=== PATIENT | female | born 1960 | race Caucasian/White ===

== ENCOUNTER 2020-07-28 04:44 | Emergency (ER) | payer SELFPAY ==
[2020-07-28] MEDS ORDERED: Pantoprazole 40 MG VIAL ONE (05:15)
[2020-07-28] MEDS ORDERED: Ondansetron PF 4 MG/2 ML Vial ONE (05:15)
[2020-07-28] MEDS ORDERED: Sodium Chloride 0.9% 1,000 ML ONE (05:15)
[2020-07-28 05:16] LABS: Bilirubin Large (Negative); Blood, Urine Trace (Negative); Clarity Slightly Cloudy (Clear); Glucose, Urine (Dipstick) Negative (Negative); Ketone, Urine Negative (Negative); Leukocyte Small (Negative); Nitrite Positive (Negative); Protein, Urine (Dipstick) 100 mg/dL (Neg-Trace); Specific Gravity, Urine 1.025 (1.005-1.030)
[2020-07-28 05:33] LABS: Bacteria/HPF 3+ HPF (None Seen)
[2020-07-28 05:34] LABS: Mucous/LPF 2+ LPF (<2+)
[2020-07-28 05:35] LABS: Other Microscopic Description FEW CLUE CELLS
[2020-07-28] MEDS ORDERED: Ketorolac Tromethamine 30 MG/ML VIAL ONE (05:37)
[2020-07-28 05:40] LABS: CRP (Inflammatory) 6.81 mg/dL (= or < 0.5)
[2020-07-28 05:43] LABS: ALT (SGPT) 221 U/L (8-55); AST (SGOT) 239 U/L (5-34); Anion Gap 18 mmol/L (10-20); BUN (Urea Nitrogen) 9 mg/dL (9.8-20.1); Bilirubin, Total 4.8 mg/dL (0.2-1.2); Calc. Creatinine Clearance 0 mL/min (70-130); Calcium 9.4 mg/dL (7.8-10.44); Carbon Dioxide 22 mmol/L (23-31); Chloride 99 mmol/L (98-107); Globulin 3.5 g/dL (2.4-3.5); Glucose 143 mg/dL (80-115); Protein, Total 7.5 g/dL (6.0-8.3); Sodium 136 mmol/L (136-145)
[2020-07-28 05:44] LABS: Hemoglobin 12.5 g/dL (12.0-16.0); Mean Corpuscular Hemoglobin 28.5 pg (27.0-31.0); Mean Corpuscular Volume 86.1 fL (78.0-98.0); Mean Platelet Volume 6.4 fL (7.4-10.4); Platelet Count 349 thou/uL (130-400); RBC Distribution Width 12.2 % (11.5-14.5); Red Blood Cell (RBC) Count 4.39 mill/uL (4.20-5.40); White Blood Cell (WBC) Count 14.5 thou/uL (4.8-10.8)
[2020-07-28 05:45] LABS: #Basophils 0.2 thou/uL (0.0-0.2); #Monocytes 1.4 thou/uL (0.11-0.59); %Basophils 1.3 % (0.0-1.0); %Lymphocytes 6.1 % (21.0-51.0); %Monocytes 9.7 % (0.0-10.0); %Neutrophils 82.8 % (42.0-75.0); Manual Diff?? NO
[2020-07-28 05:46] LABS: MDiff Complete? YES
[2020-07-28 05:51] LABS: Alkaline Phosphatase 584 U/L (40-110); Potassium 2.8 mmol/L (3.5-5.1)
[2020-07-28] MEDS ORDERED: Sodium Chloride 0.9% 200 ML ONE (05:51)
[2020-07-28] MEDS ORDERED: CEFAZOLIN 1 GM VIAL ONE (05:51)
[2020-07-28 05:52] LABS: Lipase Greater than 1000 U/L (8-78)
[2020-07-28] MEDS ORDERED: NS 0.9% w/ 40 MEQ KCL 1,000 ML IV ONE (06:09)
--- NOTE | 2020-07-28 07:53 | CT ---
PRELIMINARY REPORT/[facility]/AFTER HOURS PROCEDURE This report was discussed with Giancarlo Carranza MD by Tosin De La Torre on Jul 28, 2020 07:13:00 [employer]. Addendum electronically signed by Tosin De La Torre on July 28, 2020 7:16:[address] ABDOMEN AND PELVIS WITH CONTRAST: CLINICAL HISTORY: Abdominal pain, nausea/vomiting. COMPARISONS: None provided. TECHNIQUE: CT imaging of the abdomen and pelvis after intravenous administration of 90 mL Isovue-370 iodinated c ontrast. Multiplanar reconstructions performed. FINDINGS: LOWER CHEST: Normal. LIVER: Normal. GALLBLADDER/BILIARY: Gallbladder is moderately distended with pericholecystic fluid. Extra hepatic bi liary ductal dilatation, with dilation of the common duct measuring up to 1.5 cm. Moderate intrahepatic biliary ductal dilatation. No visualized obstructing common duct stone. SPLEEN: Normal. PANCREAS: Mild peripancreatic stranding, greatest at the pancreatic head and tail. No pancreatic or p eripancreatic fluid collections. ADRENAL GLANDS: Normal. KIDNEYS/URETERS/URINARY BLADDER: Normal appearance of the kidneys. Ureters are normal in course susie cecily. No urinary stones. Urinary bladder is unremarkable. REPRODUCTIVE: Normal. STOMACH/BOWEL: Distal esophagus and stomach are normal. Small bowel is normal. Diverticulosis of the sigmoid colon. No evidence of acute diverticulitis. Curvilinear metallic density, which may be within the lumen of the proximal large bowel near the hepatic flexure. APPENDIX: Appendix measures up to 7 mm in diameter and is fluid-filled without evidence of wall thick ening or periappendiceal inflammatory changes. PERITONEUM/MESENTERY: No intraperitoneal free air. No intraperitoneal free fluid. VASCULAR: Calcification of the distal abdominal aorta at the aortic bifurcation. Otherwise normal yasemin earance of the imaged vasculature. LYMPH NODES: No lymphadenopathy. MUSCULOSKELETAL: Degenerative changes of the lower thoracic and lumbar spine. No acute osseous abnorm ality. ABDOMINAL WALL: Peripheral soft tissues are unremarkable. IMPRESSION: 1. Mild peripancreatic stranding, likely representing early acute pancreatitis. 2. Significant intrahepatic and extra hepatic biliary ductal dilatation, without visualized obstructi ng common duct stone. This may be secondary to acute pancreatitis, or may be associated with radiolucent common duct stone/obstruction. Consider further evaluation with MRCP. 3. Moderate distention of the gallbladder with pericholecystic fluid. This may be secondary to biliar y obstruction and early acute pancreatitis. Diagnostic considerations could also include early changes of acute cholecystitis. Consider further evaluation with right upper quadrant abdominal ultra sound. 4. Appendiceal diameter at the upper limits of normal without periappendiceal inflammatory changes. C orrelate for right lower quadrant pain. 5. Curvilinear metallic density of the large bowel near the hepatic flexure, which may be within the bowel lumen. Correlate for recent ingestions versus prior surgery. 6. Diverticulosis of the sigmoid colon. No evidence of acute diverticulitis. ELECTRONICALLY SIGNED BY: Poli Gutiérrze MD Jul 28, 2020 7:11:17 AM C[employer]TER FINISHER This report is intended for review by the ordering physician only, in accordance of law. If you recei ve this report in error, please call [facility] at [phone]. FINAL REPORT CT ABDOMEN AND PELVIS WITH CONTRAST: HISTORY: Abdominal pain. COMPARISON: None. FINDINGS/IMPRESSION: Concordant with the preliminary report. Distal choledocholithiasis is most likely, given the constellation of findings. Ampullary mass is fel t somewhat less likely. ERCP recommended. CODE QA Transcribed Date/Time: 07/28/2020 8:16 AM
--- NOTE | 2020-07-28 09:10 | RAD ---
XR Chest 1 View Portable History: Chest pain Comparison: None. Findings: Lungs are clear. No pneumothorax or effusion. Cardiac silhouette and mediastinal contours a re within normal limits. Impression: No acute intrathoracic abnormality.
[2020-07-28] MEDS ORDERED: Iopamidol 370 76% 100 ML VIAL ONE (10:23)
== END 2020-07-28 08:40 | disposition short-term general hospital (02) ==
LOC: MADERS 04:44
DX: K85.90 Acute pancreatitis without necrosis or infection, unspecified (principal); E87.6 Hypokalemia; K83.1 Obstruction of bile duct; I10 Essential (primary) hypertension; Z79.899 Other long term (current) drug therapy; Z79.1 Long term (current) use of non-steroidal anti-inflammatories (NSAID)
CPT/HCPCS: 71045; 74177; 80053; 81003; 81015; 82150; 82550; 83690; 84484; 85025; 86140; 93005; 94760; 96365; 96366; 96368; 96375; C9113; J0690; J1885; J2405; J3480; J3490; J7050; Q9967